=== PATIENT | male | born 1975 | race Caucasian/White ===

== ENCOUNTER 2018-12-12 21:52 | Emergency (ER) | payer OTHER ==
[2018-12-12 22:00] VITALS: BMI 29.2
[2018-12-12] MEDS ORDERED: VANCOMYCIN 1 GM in D5W (PRE-DOCKED) 1,000 MG/250 ML IVPB ONE (22:49)
[2018-12-12] MEDS ORDERED: VANCOMYCIN 1,000 MG VIAL (RESTRICTED TO ID ONLY) ONE (23:10)
[2018-12-12 23:18] LABS: BASO % 0.9 % (0-2.0); EOS % 1.3 % (0-4.5); HEMATOCRIT 40.5 % (35.4-49); HEMOGLOBIN 13.3 GM/dl (11.7-16.9); LYMPH % 24.4 % (8-40); MCH 28.3 pg (25.7-33.7); MCHC 32.8 g/dl (32.0-35.9); MEAN CELL VOLUME 86.1 fl (80-96); MEAN PLT VOLUME 7.7 fl (7.5-11.1); MONO % 8.6 % (3.8-10.2); NEUT % 64.8 % (42.8-82.8); PLATELET COUNT 231 K/MM3 (134-434); RBC 4.71 M/mm3 (4.00-5.60); RDW 13.2 % (11.9-15.9); WHITE BLOOD COUNT 8.3 K/mm3 (4.0-10.8)
[2018-12-12 23:33] LABS: CALCIUM 9.3 mg/dl (8.5-10); CREATININE 1.4 mg/dl (0.55-1.3); POTASSIUM 3.9 mmol/L (3.5-5.1)
[2018-12-13 00:48] VITALS: BP 151/99; PULSE 72; TEMP 98.4
--- NOTE | 2018-12-13 05:14 | PDOC ---
Documentation entered by Manolo Farias SCRIBE, acting as scribe for Eder Douglass MD. Eder Douglass MD: This documentation has been prepared by the Jarrett florian Aiswarya, SCRIBE, under my direction and personally reviewed by me in its entirety. I confirm that the documentation accurately reflects all work, treatment, procedures, and medical decision making performed by me. History of Present Illness - General Chief Complaint: Pain, Acute Stated Complaint: FINGER PAIN/ REDNESS Time Seen by Provider: 12/12/18 21:56 History Source: Patient, Old Records Exam Limitations: No Limitations - History of Present Illness Initial Comments: 12/12/18 22:55 The patient is a 43 year old male, with a significant PMH of eczema, presents to the emergency department with right open multiple abscess to the right hand that began 2 days ago. The patients endorses associated symptoms of swelling, erythema, pruritus and mild pain to the right hand. The patient came into the ER for further evaluation. No medication was taken. The patient denies numbness or tingling. Denies chest pain, shortness of breath, headache and dizziness.Denies fever and chills. Allergies: amoxicillin Past surgical history: right hip replacement 5 weeks ago. Social history: None reported PCP: None reported Past History - Past Medical History Allergies/Adverse Reactions: Allergies Allergy/AdvReac Type Severity Reaction Status Date / Time amoxicillin Allergy Verified 12/12/18 21:54 Home Medications: Ambulatory Orders Aspirin [ASA -] 325 mg PO DAILY 12/12/18 Meloxicam [Mobic (Nf) -] 15 mg PO DAILY 12/12/18 COPD: No - Suicide/Smoking/Psychosocial Hx Smoking History: Never smoked Hx Alcohol Use: No Drug/Substance Use Hx: No Review of Systems - Review of Systems Able to Perform ROS?: Yes Comments:: 12/12/18 22:56 GENERAL/CONSTITUTIONAL: No fever or chills. No weakness. CARDIOVASCULAR: No chest pain or shortness of breath. RESPIRATORY: No cough, wheezing, or hemoptysis. SKIN: +right hand abscess NEUROLOGIC: No headache, vertigo, loss of consciousness, or change in strength/ sensation. ENDOCRINE: No increased thirst. No abnormal weight change. HEMATOLOGIC/LYMPHATIC: No anemia, easy bleeding, or history of blood clots. ALLERGIC/IMMUNOLOGIC: No hives or skin allergy. *Physical Exam - Vital Signs Last Vital Signs Temp Pulse Resp BP Pulse Ox 98.6 F 77 16 133/92 100 12/12/18 21:53 12/12/18 21:53 12/12/18 21:53 12/12/18 21:53 12/12/18 21:53 - Physical Exam Comments: 12/12/18 22:57 GENERAL: Awake, alert, and fully oriented, in no acute distress HEAD: No signs of trauma NECK: Normal ROM, supple, no lymphadenopathy, JVD, or masses LUNGS: Breath sounds equal, clear to auscultation bilaterally. No wheezes, and no crackles HEART: Regular rate and rhythm, normal S1 and S2, no murmurs, rubs or gallops NEUROLOGICAL: Cranial nerves II through XII grossly intact. Normal speech, normal gait SKIN: +several abscess on ring finger. Dyshidrotic eczema with several areas of open wound and redness. Streaking lymphangitis bilaterally. ED Treatment Course - LABORATORY CBC & Chemistry Diagram: 12/12/18 23:09 12/12/18 23:09 - ADDITIONAL ORDERS Additional order review: Laboratory Results 12/12/18 23:09 Sodium 138 Potassium 3.9 Chloride 104 Carbon Dioxide 22 Anion Gap 12 BUN 20 H Creatinine 1.4 H Est GFR (CKD-EPI)AfAm 70.82 Est GFR (CKD-EPI)NonAf 61.10 Random Glucose 112 H Calcium 9.3 12/12/18 23:09 RBC 4.71 MCV 86.1 MCHC 32.8 RDW 13.2 MPV 7.7 Neutrophils % 64.8 Lymphocytes % 24.4 Monocytes % 8.6 Eosinophils % 1.3 Basophils % 0.9 - Medications Given in the ED: ED Medications Discontinued Medications Generic Name Dose Route Start Last Admin Trade Name Freq PRN Reason Stop Dose Admin Vancomycin HCl 1,000 mg 12/12/18 22:49 12/12/18 23:16 Vancomycin (Pre-Docked) IVPB 12/12/18 22:50 1,000 mg ONCE ONE Administration Protocol Medical Decision Making - Medical Decision Making 12/13/18 05:14 dyshydrotic eczema with superinfection several small abscesses opened ring removed due to early constriction IV vanco d/w pt and : rather than admit, will return for q12h vanco ada: d/c meloxicam *DC/Admit/Observation/Transfer Diagnosis at time of Disposition: Cellulitis Qualifiers: Site of cellulitis: extremity Site of cellulitis of extremity: upper extremity Laterality: unspecified laterality Qualified Code(s): L03.119 - Cellulitis of unspecified part of limb - Discharge Dispostion Disposition: HOME Condition at time of disposition: Stable - Referrals - Patient Instructions Printed Discharge Instructions: DI for Lymphangitis-Adult Additional Instructions: Your creatinine today is 1.4. Please stop taking the meloxicam and take acetaminophen instead. Continue taking the Bactrim. Return to ER in 12 hours for another dose of vancomycin - Post Discharge Activity
== END 2018-12-13 00:55 | disposition home or self-care (01) ==
LOC: FER 21:52
DX: L02.511 Cutaneous abscess of right hand (principal)
CPT/HCPCS: 36415; 80048; 85025; 87040; 99282-25